=== PATIENT | female | born 1995 | race American Indian/Alaskan Native ===

== ENCOUNTER 2016-06-29 18:46 | Emergency (ER) | payer MEDICAID ==
[2016-06-29 18:47] VITALS: BMI 17.4
[2016-06-29 19:04] VITALS: BP 112/66; PULSE 78; RESP 16; TEMP 98.7; O2SAT 100
--- NOTE | 2016-06-29 20:49 | ED PDOC ---
HPI: Headache Time Seen by Provider: 06/29/16 19:48 Chief Complaint (Nursing): Abdominal Pain Chief Complaint (Provider): Headache History Per: Patient History/Exam Limitations: no limitations Onset/Duration Of Symptoms: Days (3x days) Current Symptoms Are (Timing): Still Present Severity: Moderate Preceeding Symptoms: None Associated Symptoms: Photophobia, Other (abdominal pain) Additional Complaint(s): 20 year old female with no pertinent medical history presents to the ED with complaints of a headache that started 3x days ago. She reports that it feels like a band-like constriction around her forehead. She also reports having mild photophobia and diffuse abdominal pain. She denies having any urinary symptoms, constipation, ad diarrhea. She denies taking any medications for the pain and is concerned that she might be . PMD: Savanna Camacho MD Past Medical History Reviewed: Historical Data, Nursing Documentation, Vital Signs Vital Signs: Last Vital Signs Temp 98.7 F 06/29/16 19:00 Pulse 78 06/29/16 19:00 Resp 16 06/29/16 19:00 BP 112/66 06/29/16 19:00 Pulse Ox 100 06/29/16 19:00 - Medical History PMH: Asthma - Surgical History Surgical History: No Surg Hx - Family History Family History: States: No Known Family Hx - Social History Current smoker - smoking cessation education provided: No Alcohol: None Drugs: Denies - Immunization History Hx Tetanus Toxoid Vaccination: No Hx Influenza Vaccination: No Hx Pneumococcal Vaccination: No - Home Medications Home Medications: Ambulatory Orders Medication Instructions Recorded Ibuprofen [Motrin] 400 mg PO Q8H PRN #20 tab 09/01/15 Nitrofurantoin Macrocrystals 100 mg PO BID #14 cap 05/06/16 [Macrobid] Phenazopyridine HCl [Pyridium] 200 mg PO TID #6 tablet 05/06/16 Aspirin/Acetaminophen/Caffeine 1 each PO Q8 #20 tablet 06/29/16 [Excedrin Migraine Geltab] - Allergies Allergies/Adverse Reactions: Allergies Allergy/AdvReac Type Severity Reaction Status Date / Time No Known Allergies Allergy Verified 06/29/16 19:00 Review of Systems ROS Statement: Except As Marked, All Systems Reviewed And Found Negative Gastrointestinal: Positive for: Abdominal Pain (diffuse). Negative for: Diarrhea, Constipation Genitourinary Female: Negative for: Dysuria, Hematuria Neurological: Positive for: Headache, Other (mild photophobia) Physical Exam - Reviewed Nursing Documentation Reviewed: Yes Vital Signs Reviewed: Yes - Physical Exam Appears: Positive for: Well, Non-toxic, No Acute Distress Head Exam: Positive for: ATRAUMATIC, NORMOCEPHALIC Skin: Positive for: Normal Color, Warm, Dry Cardiovascular/Chest: Positive for: Regular Rate, Rhythm Respiratory: Positive for: Normal Breath Sounds. Negative for: Respiratory Distress Gastrointestinal/Abdominal: Positive for: Normal Exam, Soft. Negative for: Tenderness Neurologic/Psych: Positive for: Alert, mold swabber II-XII (normal), Oriented (3x), Cerebellar Tests (normal), Gait (normal). Negative for: Motor/Sensory Deficits - ECG O2 Sat by Pulse Oximetry: 100 (RA) Pulse Ox Interpretation: Normal Medical Decision Making Medical Decision Makin:48 Initial impression: 20 year old female with a migraine. Initial plan: * upreg * udip * reglan 10mg IVP * toradol 30mg IVP * reevaluation 9PM: Pt. feeling much better, asking to remove IV. Return precautions given, told to f/u w/ PMD in 1-2 days. Scribe Attestation: Documented by Carolina Osorio, acting as a scribe for Nuno Kingsley MD. Provider Scribe Attestation: All medical record entries made by the Scribe were at my direction and personally dictated by me. I have reviewed the chart and agree that the record accurately reflects my personal performance of the history, physical exam, medical decision making, and the department course for this patient. I have also personally directed, reviewed, and agree with the discharge instructions and disposition. Disposition - Clinical Impression Clinical Impression: Migraine - Disposition Referrals: [facility] [Outside] Disposition: Routine/Home Disposition Time: 20:57 Condition: IMPROVED Additional Instructions: YOU ARE NOT . Prescriptions: Aspirin/Acetaminophen/Caffeine [Excedrin Migraine Geltab] 1 each PO Q8 #20 tablet Instructions: Acute Headache (ED)
== END 2016-06-29 21:17 | disposition home or self-care (01) ==
LOC: H.ER 18:46
DX: G43.909 Migraine, unspecified, not intractable, without status migrainosus (principal); J45.909 Unspecified asthma, uncomplicated; Z79.82 Long term (current) use of aspirin; R10.9 Unspecified abdominal pain

== ENCOUNTER 2016-09-19 09:23 | Emergency (ER) | payer MEDICAID ==
[2016-09-19 09:23] VITALS: BMI 19.1
[2016-09-19] MEDS ORDERED: Sodium Chloride 0.9% 1,000 ML IV STA (09:47)
--- NOTE | 2016-09-19 09:57 | ED PDOC ---
HPI: Abdomen Time Seen by Provider: 09/19/16 09:32 Chief Complaint (Nursing): Abdominal Pain Chief Complaint (Provider): Abdominal Pain History Per: Patient History/Exam Limitations: no limitations Onset/Duration Of Symptoms: Days (x1 week) Outside of [place] travel?: No Current Symptoms Are (Timing): Still Present Location Of Pain/Discomfort: Suprapubic Quality Of Discomfort: Sharp Associated Symptoms: Diarrhea Additional Complaint(s): Chema Moore is a 20 year old female, with a past medical history of asthma, who presents to the emergency department complaining of a lower sharp constant abdominal pain onset for one week. Patient reports some "bubbly" pain, urgency of urination, and non bloody diarrhea. Patient reports she has had similar symptoms in the past from an urinary tract infection. She denies any dysuria, nausea, vomit, cough, congestion, fever, weakness, chest pain and shortness of breath. No back pain. PMD: None provided. Past Medical History Reviewed: Historical Data, Nursing Documentation, Vital Signs Vital Signs: Last Vital Signs Temp 97 F L 09/19/16 09:40 Pulse 81 09/19/16 09:40 Resp 16 09/19/16 09:40 BP 141/62 09/19/16 09:40 Pulse Ox 99 09/19/16 10:06 - Medical History PMH: Asthma Denies: Chronic Kidney Disease - Surgical History Surgical History: No Surg Hx - Family History Family History: States: Unknown Family Hx - Social History Current smoker - smoking cessation education provided: No Alcohol: None Drugs: Denies - Immunization History Hx Tetanus Toxoid Vaccination: No Hx Influenza Vaccination: No Hx Pneumococcal Vaccination: No - Home Medications Home Medications: Ambulatory Orders Medication Instructions Recorded Dicyclomine [Dicyclomine HCl] 10 mg PO BID PRN #6 cap 09/19/16 - Allergies Allergies/Adverse Reactions: Allergies Allergy/AdvReac Type Severity Reaction Status Date / Time No Known Allergies Allergy Verified 07/09/16 11:51 Review of Systems ROS Statement: Except As Marked, All Systems Reviewed And Found Negative Constitutional: Negative for: Fever, Weakness Cardiovascular: Negative for: Chest Pain Respiratory: Negative for: Cough, Shortness of Breath Gastrointestinal: Positive for: Abdominal Pain, Diarrhea (non bloody). Negative for: Nausea, Vomiting Genitourinary Female: Positive for: Other (urgency of urination). Negative for : Dysuria, Frequency Physical Exam - Reviewed Nursing Documentation Reviewed: Yes Vital Signs Reviewed: Yes - Physical Exam Appears: Positive for: Non-toxic, No Acute Distress Head Exam: Positive for: ATRAUMATIC, NORMAL INSPECTION, NORMOCEPHALIC Skin: Positive for: Normal Color, Warm, Dry Eye Exam: Positive for: EOMI, Normal appearance, PERRL ENT: Positive for: Normal ENT Inspection Neck: Positive for: Normal, Painless ROM, Supple Cardiovascular/Chest: Positive for: Regular Rate, Rhythm Respiratory: Positive for: Normal Breath Sounds. Negative for: Respiratory Distress Gastrointestinal/Abdominal: Positive for: Soft, Tenderness (only suprapubic ), Other (No left or right lower quadrant tenderness; no periumbilical tenderness.) . Negative for: Guarding, Rebound Extremity: Positive for: Normal ROM Neurologic/Psych: Positive for: Alert, Oriented - Laboratory Results Result Diagrams: 09/19/16 09:58 09/19/16 11:02 Interpretation Of Abn Labs: no acute - ECG O2 Sat by Pulse Oximetry: 99 (RA) Pulse Ox Interpretation: Normal - Progress ED Course And Treament: 1217: Stable. AAOx3. Pain free. Tolerated PO. Playing with phone. Fu with pcp. Medical Decision Making Medical Decision Making: Initial Impression: Urinary Tract Infection Initial Plan: --Basic Metabolic Panel --Urine Dip --Urine --CBC w/ differential --Bentyl 10 mg PO --Toradol 15 mg IV --NS IV 1,000 ml at 1,000 mls/hr --reevaluation Scribe Attestation: Documented by Antonio Chandler, acting as a scribe for Jean Claude Veliz MD. Provider Scribe Attestation: All medical record entries made by the Scribe were at my direction and personally dictated by me. I have reviewed the chart and agree that the record accurately reflects my personal performance of the history, physical exam, medical decision making, and the department course for this patient. I have also personally directed, reviewed, and agree with the discharge instructions and disposition. Disposition - Clinical Impression Clinical Impression: Abdominal cramps - Patient ED Disposition Is Patient to be Admitted: No Counseled Patient/Family Regarding: Studies Performed, Diagnosis, Need For Followup, Rx Given - Disposition Referrals: [facility] [Outside] - 09/20/16 Disposition: Routine/Home Disposition Time: 12:20 Condition: STABLE Additional Instructions: Return if not better in 3 days. Prescriptions: Dicyclomine [Dicyclomine HCl] 10 mg PO BID PRN #6 cap PRN Reason: Gi Distress Instructions: Acute Diarrhea (ED), Acute Abdominal Pain (ED) Forms: [employer] (Italian)
[2016-09-19 11:10] LABS: BASO % 0.3 % (0.0-2.0); EOS # 0.2 K/uL (0.0-0.7); EOS % 1.9 % (0.0-4.0); HEMOGLOBIN 11.8 g/dL (12.0-16.0); LYMPH # 1.6 K/uL (1.0-4.3); LYMPH % 18.6 % (20.0-40.0); MEAN CELL VOLUME 91.4 fl (81.0-99.0); MEAN CORPUSCULAR HEMOGLOBIN 30.4 pg (27.0-31.0); MEAN CORPUSCULAR HGB CONC 33.2 g/dL (33.0-37.0); MEAN PLATELET VOLUME 8.3 fl (7.2-11.7); MONO # 0.5 K/uL (0.0-0.8); MONO % 5.9 % (0.0-10.0); NEUT # 6.3 K/uL (1.8-7.0); NEUT % 73.3 % (50.0-75.0); RBC 3.88 Mil/uL (3.80-5.20); RED CELL DISTRIBUTION WIDTH 13.6 % (11.5-14.5); WHITE BLOOD COUNT 8.6 K/uL (4.8-10.8)
[2016-09-19 11:23] LABS: BLOOD UREA NITROGEN 11 mg/dl (7-17); CALCIUM 9.1 mg/dL (8.4-10.2); GFR AFRICAN-AMERICAN > 60; GFR NON-AFRICAN AMERICAN > 60
[2016-09-19 13:10] VITALS: BP 126/78; PULSE 78; RESP 18; TEMP 97.6; O2SAT 98
== END 2016-09-19 13:10 | disposition home or self-care (01) ==
LOC: H.ER 09:23
DX: N39.0 Urinary tract infection, site not specified (principal); J45.909 Unspecified asthma, uncomplicated

== ENCOUNTER 2016-12-22 12:01 | Emergency (ER) | payer MEDICAID ==
[2016-12-22 12:01] VITALS: BMI 19.1
[2016-12-22 12:08] VITALS: TEMP 97.9; O2SAT 100
--- NOTE | 2016-12-22 12:43 | ED PDOC ---
HPI: Abdomen Time Seen by Provider: 12/22/16 12:26 Chief Complaint (Nursing): Abdominal Pain Chief Complaint (Provider): Abdominal Pain History Per: Patient History/Exam Limitations: no limitations Onset/Duration Of Symptoms: Days (x3) Current Symptoms Are (Timing): Still Present Pain Scale Rating Of: 8 Location Of Pain/Discomfort: Other (lower abdominal ) Quality Of Discomfort: Sharp Associated Symptoms: Diarrhea. denies: Fever, Chills, Vomiting, Other (vaginal bleeding) Additional Complaint(s): Chema Moore is a 20 year old female, with a past medical history of asthma and migraines, who presents to the emergency department complaining of lower abdominal pain onset for 3 days. Patient also reports x1 day of diarrhea. She denies any fever, chills, nausea or vaginal bleeding. No further medical complaints. PMD: None provided. Past Medical History Reviewed: Historical Data, Nursing Documentation, Vital Signs Vital Signs: Last Vital Signs Temp 97.9 F 12/22/16 12:05 Pulse 91 H 12/22/16 12:05 Resp 20 12/22/16 12:05 BP 103/52 L 12/22/16 12:05 Pulse Ox 100 12/22/16 14:11 - Medical History PMH: Asthma, Migraine Denies: Chronic Kidney Disease - Family History Family History: States: Unknown Family Hx - Immunization History Hx Tetanus Toxoid Vaccination: No Hx Influenza Vaccination: No Hx Pneumococcal Vaccination: No - Home Medications Home Medications: Ambulatory Orders Medication Instructions Recorded Dicyclomine [Dicyclomine HCl] 10 mg PO BID PRN #6 cap 09/19/16 - Allergies Allergies/Adverse Reactions: Allergies Allergy/AdvReac Type Severity Reaction Status Date / Time No Known Allergies Allergy Verified 07/09/16 11:51 Review of Systems ROS Statement: Except As Marked, All Systems Reviewed And Found Negative Constitutional: Negative for: Fever, Chills Gastrointestinal: Positive for: Abdominal Pain (lower), Diarrhea. Negative for : Vomiting Genitourinary Female: Negative for: Vaginal Bleeding Physical Exam - Reviewed Nursing Documentation Reviewed: Yes Vital Signs Reviewed: Yes - Physical Exam Appears: Positive for: Well, Non-toxic, No Acute Distress Head Exam: Positive for: ATRAUMATIC, NORMAL INSPECTION, NORMOCEPHALIC Skin: Positive for: Normal Color, Warm, Dry Eye Exam: Positive for: EOMI, Normal appearance, PERRL Neck: Positive for: Normal, Painless ROM, Supple Cardiovascular/Chest: Positive for: Regular Rate, Rhythm. Negative for: Murmur Respiratory: Positive for: Normal Breath Sounds. Negative for: Respiratory Distress Gastrointestinal/Abdominal: Positive for: Normal Exam, Bowel Sounds, Soft. Negative for: Tenderness, Guarding, Rebound Pelvic Exam: Positive for: Discharge (minimal), Tender Adnexa (left, noted) Back: Positive for: Normal Inspection. Negative for: L CVA Tenderness, R CVA Tenderness Extremity: Positive for: Normal ROM. Negative for: Deformity, Swelling Neurologic/Psych: Positive for: Alert, Oriented - Laboratory Results Result Diagrams: 12/22/16 12:48 12/22/16 12:48 Urine POC: Negative - ECG O2 Sat by Pulse Oximetry: 100 (RA) Pulse Ox Interpretation: Normal - Progress ED Course And Treament: patient does not want to stay for US evaluation of abdominal pain AMA paperwork signed by her in ED; risks benefits of testing discussed at length. Medical Decision Making Medical Decision Making: Initial Impression: Abdominal pain Initial Plan: --Comp Metabolic Panel --Urine dipstick --Urine --CBC w/ differential --Urine culture --Urinalysis --Transvaginal [US] --reevaluation Scribe Attestation: Documented by Antonio Chandler, acting as a scribe for Waldo Macedo PA-C Provider Scribe Attestation: All medical record entries made by the Scribe were at my direction and personally dictated by me. I have reviewed the chart and agree that the record accurately reflects my personal performance of the history, physical exam, medical decision making, and the department course for this patient. I have also personally directed, reviewed, and agree with the discharge instructions and disposition. Disposition - Clinical Impression Clinical Impression: Abdominal pain - Patient ED Disposition Is Patient to be Admitted: No - Disposition Disposition: Against Medical Advice Disposition Time: 14:07 Condition: STABLE Forms: [employer] (Colombian)
[2016-12-22 12:51] LABS: URINE BILIRUBIN NEGATIVE (NEGATIVE); URINE BLOOD NEGATIVE (NEGATIVE); URINE COLOR YELLOW (YELLOW); URINE GLUCOSE (UA) NEG (Normal); URINE KETONE NEGATIVE (NEGATIVE); URINE LEUKOCYTE ESTERASE TRACE Leu/uL (Negative); URINE PROTEIN 30 mg/dL (NEGATIVE); WBC URINE 4 /hpf (0-5)
[2016-12-22 13:02] LABS: BASO % 0.5 % (0.0-2.0); EOS # 0.3 K/uL (0.0-0.7); EOS % 3.2 % (0.0-4.0); HEMATOCRIT 37.7 % (34.0-47.0); LYMPH # 2.4 K/uL (1.0-4.3); LYMPH % 29.5 % (20.0-40.0); MEAN CELL VOLUME 91.3 fl (81.0-99.0); MEAN PLATELET VOLUME 7.4 fl (7.2-11.7); MONO # 0.6 K/uL (0.0-0.8); MONO % 7.3 % (0.0-10.0); NEUT # 4.9 K/uL (1.8-7.0); NEUT % 59.5 % (50.0-75.0); NRBC % 0.1 % (0.0-0.0); RED CELL DISTRIBUTION WIDTH 13.7 % (11.5-14.5); WHITE BLOOD COUNT 8.2 K/uL (4.8-10.8)
[2016-12-22 13:13] LABS: ALB/GLOB RATIO 1.2 (1.0-2.1); ALKALINE PHOSPHATASE 41 U/L (38-126); ALT/SGPT 32 U/L (9-52); AST/SGOT 70 U/L (14-36); BILIRUBIN,TOTAL 0.5 mg/dl (0.2-1.3); BLOOD UREA NITROGEN 8 mg/dl (7-17); CARBON DIOXIDE 26 mmol/L (22-30); CHLORIDE 105 mmol/L (98-107); GFR AFRICAN-AMERICAN > 60; GLUCOSE,RANDOM 92 mg/dL (65-105); SODIUM 138 mmol/l (132-148); TOTAL PROTEIN 7.7 G/DL (6.3-8.2)
[2016-12-22 14:27] VITALS: BP 110/68; PULSE 68; RESP 14
== END 2016-12-22 14:13 | disposition left against medical advice (07) ==
LOC: H.ER 12:01
DX: R10.9 Unspecified abdominal pain (principal)

== ENCOUNTER 2017-02-14 13:58 | Emergency (ER) | payer MEDICAID ==
[2017-02-14 13:59] VITALS: BMI 19.1
[2017-02-14 14:22] VITALS: BP 109/69; PULSE 70; RESP 16; TEMP 98.2; O2SAT 100
--- NOTE | 2017-02-14 14:43 | ED PDOC ---
HPI: Abdomen Time Seen by Provider: 02/14/17 14:26 Chief Complaint (Nursing): Abdominal Pain Chief Complaint (Provider): Pelvic cramps History Per: Patient History/Exam Limitations: no limitations Onset/Duration Of Symptoms: Days (Sep 2016) Additional Complaint(s): Pt. with pelvic cramps across lower ongoing since Sep 2016. Seen in Ed 2x for same. No period since Dec. Also with headaches frontal, mild, like her previous migraines (ongoing off and on since Sep). Not the worst in her life. No neck pain, chest pain, dyspnea. No dizziness. No numbness. Nausea, no vomit. No fever, cough. No leg pain. No dysuria or vaginal bleeding. Past Medical History Reviewed: Historical Data, Nursing Documentation, Vital Signs Vital Signs: Last Vital Signs Temp 98.2 F 02/14/17 14:17 Pulse 70 02/14/17 14:17 Resp 16 02/14/17 14:17 BP 109/69 02/14/17 14:17 Pulse Ox 100 02/14/17 14:44 - Medical History PMH: Asthma, Migraine Denies: Chronic Kidney Disease - Surgical History Surgical History: No Surg Hx - Family History Family History: States: Unknown Family Hx - Immunization History Hx Tetanus Toxoid Vaccination: No Hx Influenza Vaccination: No Hx Pneumococcal Vaccination: No - Home Medications Home Medications: Ambulatory Orders Medication Instructions Recorded Dicyclomine [Dicyclomine HCl] 10 mg PO BID PRN #6 cap 09/19/16 - Allergies Allergies/Adverse Reactions: Allergies Allergy/AdvReac Type Severity Reaction Status Date / Time No Known Allergies Allergy Verified 02/14/17 14:16 Review of Systems ROS Statement: Except As Marked, All Systems Reviewed And Found Negative Gastrointestinal: Positive for: Nausea Genitourinary Female: Positive for: Pelvic Pain Neurological: Positive for: Headache Physical Exam - Reviewed Nursing Documentation Reviewed: Yes Vital Signs Reviewed: Yes - Physical Exam Appears: Positive for: Non-toxic, No Acute Distress Head Exam: Positive for: ATRAUMATIC, NORMAL INSPECTION, NORMOCEPHALIC Skin: Positive for: Normal Color, Warm, DRY Eye Exam: Positive for: EOMI, Normal appearance, PERRL ENT: Positive for: Normal ENT Inspection Neck: Positive for: Normal, Painless ROM Cardiovascular/Chest: Positive for: Regular Rate, Rhythm Respiratory: Positive for: CNT, Normal Breath Sounds Gastrointestinal/Abdominal: Positive for: Bowel Sounds, Soft, Tenderness ( across lower pelvic mild; no guarding). Negative for: Distended, Guarding Back: Positive for: Normal Inspection. Negative for: L CVA Tenderness, R CVA Tenderness Extremity: Positive for: Normal ROM. Negative for: Tenderness, Pedal Edema Neurologic/Psych: Positive for: Alert, debt recovery officer II-XII, Oriented. Negative for: Motor/Sensory Deficits, Aphasia, Facial Droop - Laboratory Results Result Diagrams: 02/14/17 14:51 02/14/17 14:51 Interpretation Of Abn Labs: no acute - ECG O2 Sat by Pulse Oximetry: 100 Pulse Ox Interpretation: Normal - Progress ED Course And Treament: 1521: Stable. AAOx3. Pain free. Tolerated PO. Fu with pcp. Refused to finish IV and wanted IV out. Did not get all of reglan. Disposition - Clinical Impression Clinical Impression: Pelvic pain - Patient ED Disposition Is Patient to be Admitted: No Counseled Patient/Family Regarding: Studies Performed, Diagnosis, Need For Followup - Disposition [facility] - 02/15/17 Disposition: Routine/Home Disposition Time: 15:22 Condition: STABLE Additional Instructions: Return if not better in 3 days. Instructions: Pelvic Pain in Women (ED) Forms: [employer] (Ghanaian)
[2017-02-14] MEDS: Sodium Chloride 0.9% 1,000 ML IV STA (14:53)
[2017-02-14 14:58] LABS: BASO % 0.5 % (0.0-2.0); EOS # 0.2 K/uL (0.0-0.7); EOS % 2.4 % (0.0-4.0); HEMOGLOBIN 13.7 g/dL (12.0-16.0); LYMPH # 1.9 K/uL (1.0-4.3); LYMPH % 21.4 % (20.0-40.0); MEAN CORPUSCULAR HEMOGLOBIN 30.3 pg (27.0-31.0); MEAN CORPUSCULAR HGB CONC 32.6 g/dL (33.0-37.0); MEAN PLATELET VOLUME 7.6 fl (7.2-11.7); MONO # 0.5 K/uL (0.0-0.8); MONO % 5.5 % (0.0-10.0); NEUT # 6.2 K/uL (1.8-7.0); NEUT % 70.2 % (50.0-75.0); RBC 4.5 Mil/uL (3.80-5.20); RED CELL DISTRIBUTION WIDTH 13.9 % (11.5-14.5); WHITE BLOOD COUNT 8.8 K/uL (4.8-10.8)
[2017-02-14 15:10] LABS: ALB/GLOB RATIO 1.1 (1.0-2.1); ALBUMIN 4.5 g/dL (3.5-5.0); ALT/SGPT 23 U/L (9-52); AST/SGOT 16 U/L (14-36); BLOOD UREA NITROGEN 10 mg/dl (7-17); CALCIUM 9.5 mg/dL (8.4-10.2); GFR AFRICAN-AMERICAN > 60; GFR NON-AFRICAN AMERICAN > 60
== END 2017-02-14 15:27 | disposition home or self-care (01) ==
LOC: H.ER 13:58
DX: R10.2 Pelvic and perineal pain (principal); J45.909 Unspecified asthma, uncomplicated
CPT/HCPCS: 80053; 81025; 85025; 96360; 99282; J2765; J7040

== ENCOUNTER 2018-03-04 16:23 | Emergency (ER) | payer MEDICAID ==
[2018-03-04 16:24] VITALS: BMI 20.5
[2018-03-04 16:29] VITALS: BP 113/75; PULSE 91; RESP 16; O2SAT 100
[2018-03-04] MEDS ORDERED: Sodium Chloride 0.9% 1,000 ML IV STA (17:03)
[2018-03-04] MEDS ORDERED: Morphine 4 MG/ML VIAL IV STA ×2 (17:16→17:48)
--- NOTE | 2018-03-04 17:19 | ED PDOC ---
HPI: Abdomen Time Seen by Provider: 03/04/18 16:32 Chief Complaint (Nursing): Abdominal Pain Chief Complaint (Provider): abdominal pain History Per: Patient History/Exam Limitations: no limitations Onset/Duration Of Symptoms: Days Current Symptoms Are (Timing): Still Present Additional Complaint(s): 22 y/o female with a PMHx of Asthma presents to the ED for evaluation of abdominal cramping associated with vomiting and diarrhea. Patient reports of being seen at [facility] recently where she was given Tamiflu and other medications that she was unable to tolerate due to vomiting. Otherwise, patient denies fever, sore throat and cough. PMD: Mehul Camacho Past Medical History Reviewed: Historical Data, Nursing Documentation, Vital Signs Vital Signs: Last Vital Signs Temp 98.0 F 03/04/18 16:28 Pulse 91 H 03/04/18 16:28 Resp 16 03/04/18 16:28 BP 113/75 03/04/18 16:28 Pulse Ox 100 03/04/18 16:28 - Medical History PMH: Asthma, Fractures (FINGER), Migraine Denies: Chronic Kidney Disease - Surgical History Surgical History: No Surg Hx - Family History Family History: States: Unknown Family Hx - Social History Current smoker - smoking cessation education provided: Yes - Immunization History Hx Tetanus Toxoid Vaccination: No Hx Influenza Vaccination: No Hx Pneumococcal Vaccination: No - Home Medications Home Medications: Ambulatory Orders Medication Instructions Recorded Cephalexin [cephalexin] 500 mg PO TID #21 cap 08/26/17 Ibuprofen [Motrin Tab] 600 mg PO Q6 #15 tab 08/26/17 Acetaminophen [Pain Relief] 500 mg PO QID PRN #30 tablet 02/28/18 Albuterol HFA [Ventolin HFA 90 2 puff IH [id number] PRN #1 in 02/28/18 mcg/actuation (8 g)] Azithromycin [Zithromax] 250 mg PO DAILY #4 tab 02/28/18 Oseltamivir Phosphate [Tamiflu] 75 mg PO BID #10 capsule 02/28/18 Prednisone 50 mg PO DAILY #4 tablet 02/28/18 - Allergies Allergies/Adverse Reactions: Allergies Allergy/AdvReac Type Severity Reaction Status Date / Time No Known Allergies Allergy Verified 03/04/18 16:25 Review of Systems ROS Statement: Except As Marked, All Systems Reviewed And Found Negative Constitutional: Negative for: Fever ENT: Negative for: Throat Pain Respiratory: Negative for: Cough Gastrointestinal: Positive for: Vomiting, Abdominal Pain (cramping), Diarrhea Physical Exam - Reviewed Nursing Documentation Reviewed: Yes Vital Signs Reviewed: Yes - Physical Exam Appears: Positive for: Uncomfortable Head Exam: Positive for: ATRAUMATIC, NORMOCEPHALIC Skin: Positive for: Normal Color, Warm, Dry Eye Exam: Positive for: Normal appearance, EOMI, PERRL Neck: Positive for: Normal, Painless ROM, Supple Cardiovascular/Chest: Positive for: Regular Rate, Rhythm. Negative for: Murmur Respiratory: Positive for: Normal Breath Sounds. Negative for: Respiratory Distress Gastrointestinal/Abdominal: Positive for: Tenderness (generalized abdominal tenderness). Negative for: Mass, Guarding, Rebound Back: Positive for: Normal Inspection. Negative for: L CVA Tenderness, R CVA Tenderness, Vertebral Tenderness Extremity: Positive for: Normal ROM. Negative for: Pedal Edema, Deformity Neurologic/Psych: Positive for: Alert, Oriented. Negative for: Motor/Sensory Deficits - ECG O2 Sat by Pulse Oximetry: 100 (RA) Pulse Ox Interpretation: Normal Medical Decision Making Medical Decision Making: Time: 1702 Plan: -- CT Abd/Pelvis IV Contrast ONLY -- CMP -- ED Urine -- ED Urine Dipstick -- CBC with Differentials -- PTT -- Prothrombin Time -- Morphine 2 mg IV -- Sodium Chloride 0.9% 1000 ml IV 1000 mls/hr -- Zofran Inj 4 mg IV -- Urinalysis Scribe Attestation: Documented by Gricel Blackwood, acting as a scribe for Radha Krishna MD. Provider Scribe Attestation: All medical record entries made by the Scribe were at my direction and per sonally dictated by me. I have reviewed the chart and agree that the record accurately reflects my personal performance of the history, physical exam, medical decision making, and the department course for this patient. I have also personally directed, reviewed, and agree with the discharge instructions and disposition. Disposition - Disposition
[2018-03-04 17:49] LABS: SQUAMOUS EPITHIAL 5 /hpf (0-5); URINE BILIRUBIN NEGATIVE (NEGATIVE); URINE BLOOD NEGATIVE (NEGATIVE); URINE CLARITY SLIGHTY-CLOUDY (Clear); URINE COLOR YELLOW (YELLOW); URINE GLUCOSE (UA) NEG (NEGATIVE); URINE LEUKOCYTE ESTERASE TRACE Leu/uL (Negative); URINE PROTEIN NEGATIVE (NEGATIVE); URINE UROBILINOGEN 0.2-1.0 mg/dL (0.2-1.0)
[2018-03-04 17:58] LABS: PROTHROMBIN TIME 11.1 Seconds (9.8-13.1)
[2018-03-04 18:01] LABS: BASO % 0.1 % (0.0-2.0); EOS # 0.1 K/uL (0.0-0.7); HEMOGLOBIN 13.4 g/dL (12.0-16.0); LYMPH # 1.2 K/uL (1.0-4.3); LYMPH % 11.4 % (20.0-40.0); MEAN CELL VOLUME 97.4 fl (81.0-99.0); MEAN CORPUSCULAR HEMOGLOBIN 32.1 pg (27.0-31.0); MEAN PLATELET VOLUME 7.8 fl (7.2-11.7); MONO # 0.5 K/uL (0.0-0.8); NEUT # 8.4 K/uL (1.8-7.0); NEUT % 82.5 % (50.0-75.0); NRBC % 0.1 % (0.0-0.0); RBC 4.17 Mil/uL (3.80-5.20); WHITE BLOOD COUNT 10.1 K/uL (4.8-10.8)
[2018-03-04 18:02] LABS: ALB/GLOB RATIO 1.1 (1.0-2.1); ALT/SGPT 21 U/L (9-52); AST/SGOT 16 U/L (14-36); BLOOD UREA NITROGEN 16 mg/dl (7-17); CALCIUM 9.2 mg/dL (8.4-10.2); GFR NON-AFRICAN AMERICAN > 60
[2018-03-04] MEDS ORDERED: Sodium Chloride 0.9% 50 ML IV ONE (18:58)
[2018-03-04] MEDS ORDERED: Iohexol 300 100 ML IJ ONE (18:58)
--- NOTE | 2018-03-04 19:28 | ED PDOC ---
- Laboratory Results Result Diagrams: 03/04/18 17:42 03/04/18 17:42 Lab Results: PT 11.1 Seconds (9.8-13.1) 03/04/18 17:47 INR 1.0 03/04/18 17:47 APTT 29.0 Seconds (25.6-37.1) 03/04/18 17:47 Total Bilirubin 0.6 mg/dl (0.2-1.3) 03/04/18 17:42 AST 16 U/L (14-36) 03/04/18 17:42 ALT 21 U/L (9-52) 03/04/18 17:42 Alkaline Phosphatase 50 U/L (38-126) 03/04/18 17:42 Total Protein 7.6 G/DL (6.3-8.2) 03/04/18 17:42 Albumin 4.0 g/dL (3.5-5.0) 03/04/18 17:42 Globulin 3.6 gm/dL (2.2-3.9) 03/04/18 17:42 Albumin/Globulin Ratio 1.1 (1.0-2.1) 03/04/18 17:42 Urine Color Yellow (YELLOW) 03/04/18 17:33 Urine Clarity Slighty-cloudy (Clear) 03/04/18 17:33 Urine pH 6.0 (5.0-8.0) 03/04/18 17:33 Ur Specific Levasy 1.024 (1.003-1.030) 03/04/18 17:33 Urine Protein Negative mg/dL (NEGATIVE) 03/04/18 17:33 Urine Glucose (UA) Neg mg/dL (NEGATIVE) 03/04/18 17:33 Urine Ketones Trace mg/dL (NEGATIVE) 03/04/18 17:33 Urine Blood Negative (NEGATIVE) 03/04/18 17:33 Urine Nitrate Negative (NEGATIVE) 03/04/18 17:33 Urine Bilirubin Negative (NEGATIVE) 03/04/18 17:33 Urine Urobilinogen 0.2-1.0 mg/dL (0.2-1.0) 03/04/18 17:33 Ur Leukocyte Esterase Trace Bonnie/uL (Negative) 03/04/18 17:33 Urine RBC (Auto) 2 /hpf (0-3) 01/28/19 17:33 Urine Microscopic WBC 3 /hpf (0-5) 03/04/18 17:33 Ur Squamous Epith Cells 5 /hpf (0-5) 03/04/18 17:33 - ECG O2 Sat by Pulse Oximetry: 100 (RA) Pulse Ox Interpretation: Normal Medical Decision Making Medical Decision Making: Time: 1899 -- Patient endorsed to me by Dr. Krishna, pending CT scan, reassessment and final ER disposition. Time: 2021 CT RESULTS FINDINGS: LUNG BASES: The lung bases appear clear. No pleural effusions are seen. LIVER: Unremarkable. GALLBLADDER AND BILE DUCTS: The gallbladder appears within normal limits. No radioopaque gallstones are seen. No biliary ductal dilatation is evident. PANCREAS: Unremarkable. SPLEEN: Unremarkable. ADRENAL GLANDS: Unremarkable. KIDNEYS, URETERS, AND BLADDER: The kidneys appear within normal limits. There is no hydronephrosis or hydroureter. No urinary calculi are seen. STOMACH AND BOWEL: Unremarkable appearance of the stomach. No evidence of bowel obstruction. There is apparent mild mucosal wall thickening of the small intestine suggesting enteritis. Inflammatory or infectious etiologies are thought most likely. No definite identification of colitis. APPENDIX: No evidence of acute appendicitis on CT examination. PERITONEUM: No free fluid. No free air. LYMPH NODES: No lymphadenopathy is evident. REPRODUCTIVE: The uterus is deviated to the right of midline in position; a normal variant finding. Otherwise, unremarkable as visualized. VASCULATURE: No evidence of abdominal aortic aneurysm. BONES: No aggressive appearing osseous lesion. No acute osseous pathology evident. IMPRESSION: 1. Findings suggestive of diffuse enteritis. Infectious or inflammatory etiologies are thought most likely. Electronically signed on Mar 04, 2018 8:22:23 PM EST by: Edward Taylor M.D., AALIYAH Certified By [facility] [employer] Trained MRI and CT Specialist pt aware of results. feels better and tolerated po. given zofran rx and instructed outpt follow up Scribe Attestation: Documented by Gricel Blackwood, acting as a scribe for Vicki Navarrete MD. Provider Scribe Attestation: All medical record entries made by the Scribe were at my direction and personally dictated by me. I have reviewed the chart and agree that the record accurately reflects my personal performance of the history, physical exam, medical decision making, and the department course for this patient. I have also personally directed, reviewed, and agree with the discharge instructions and disposition. Disposition - Clinical Impression Clinical Impression: Enteritis - POA Present On Arrival: None - Disposition Disposition: Routine/Home Disposition Time: 20:30 Condition: IMPROVED Additional Instructions: follow up with your primary doctor in 2 days for reevaluation, and GI doctor if symptoms persist return to the ED with any worsening or concerning symptoms Prescriptions: Ondansetron [Zofran] 4 mg PO Q6H PRN #5 tab PRN Reason: Nausea/Vomiting Instructions: Viral Gastroenteritis, Adult (DC) Forms: [facility] (Swedish)
[2018-03-04 21:28] VITALS: TEMP 98
--- NOTE | 2018-03-05 11:11 | CT ---
Date of service: 03/04/2018 PROCEDURE: CT Abdomen and Pelvis with contrast HISTORY: Abd pain, fever COMPARISON: None. TECHNIQUE: Intravenous contrast dose: 95 cc Omnipaque 300. Radiation dose: Total exam DLP = 210.12 mGy-cm. This CT exam was performed using one or more of the following dose reduction techniques: Automated exposure control, adjustment of the mA and/or kV according to patient size, and/or use of iterative reconstruction technique. FINDINGS: LOWER THORAX: Unremarkable. LIVER: Unremarkable. No gross lesion or ductal dilatation. GALLBLADDER AND BILE DUCTS: Unremarkable. PANCREAS: Unremarkable. No gross lesion or ductal dilatation. SPLEEN: Unremarkable. ADRENALS: Unremarkable. No mass. KIDNEYS AND URETERS: Unremarkable. No hydronephrosis. No solid mass. VASCULATURE: Unremarkable. No aortic aneurysm. No atherosclerotic calcification or mural plaque present. BOWEL: Unremarkable. No obstruction. No gross mural thickening. APPENDIX: Normal appendix. PERITONEUM: Unremarkable. No free fluid. No free air. LYMPH NODES: Unremarkable. No enlarged lymph nodes. BLADDER: Unremarkable. REPRODUCTIVE: Unremarkable. BONES: No acute fracture. OTHER FINDINGS: None. IMPRESSION: Unremarkable contrast enhanced CT of the abdomen and pelvis.
== END 2018-03-04 20:30 | disposition home or self-care (01) ==
LOC: H.ER 16:23
DX: K52.9 Noninfective gastroenteritis and colitis, unspecified (principal); J45.909 Unspecified asthma, uncomplicated
CPT/HCPCS: 74177; 80053; 81003; 81025; 85025; 85610; 85730; 96374; 96375; 99284; J2270; J2405; J7030; Q9967